=== PATIENT | female | born 1940 | race Caucasian/White ===

== ENCOUNTER 2017-09-18 12:49 | Inpatient (IN) ==
[2017-09-18] MEDS ORDERED: 0.9 % Sodium Chloride 1,000 ML IVC ONE ×3 (13:27→16:16)
[2017-09-18 13:44] LABS: Hematocrit 29.3 % (35.3-44.9); Hemoglobin 9.6 g/dL (11.5-15.4); Mean Corpuscular HGB Conc 32.8 g/dL (31.6-35.5); Mean Corpuscular Hemoglobin 29.8 pg (28.0-33.3); Nucleated Red Blood Cells 0.9 /100 WBC (0); Platelet Count 129 K/mcL (140-400); Red Blood Count 3.22 M/mcL (3.82-4.97)
[2017-09-18 14:06] LABS: Albumin/Globulin Ratio 0.9 (1.1-2.2); Bilirubin,Direct 0.3 mg/dL (0.0-0.2); Bilirubin,Indirect 0.3 mg/dL (0.0-1.2); Bilirubin,Total 0.6 mg/dL (0.3-1.0); Calcium 8.8 mg/dL (8.6-10.3); Globulin 3.5 g/dL (2.4-3.5); Magnesium 1.6 mg/dL (1.6-2.6); Phosphorous 4.6 mg/dL (2.7-4.5); Potassium 4.1 mEq/L (3.5-5.1); Total Protein 6.5 g/dL (6.4-8.9)
[2017-09-18] MEDS ORDERED: Ondansetron 4 MG/2 ML VIAL IVP ONE (14:09)
--- NOTE | 2017-09-18 14:11 | Emergency Department Note ---
Disposition Clinical Impression: Cellulitis Qualifiers: Site of cellulitis: trunk Site of cellulitis of trunk: abdominal wall Qualified Code(s): L03.311 - Cellulitis of abdominal wall Sepsis Qualifiers: Sepsis type: sepsis due to unspecified organism Qualified Code(s): A41.9 - Sepsis, unspecified organism UTI (urinary tract infection) Qualifiers: Urinary tract infection type: site unspecified Hematuria presence: without hematuria Qualified Code(s): N39.0 - Urinary tract infection, site not specified Disposition: Admitted As Inpatient Condition: Fair Referrals: Siri Otto MD [Primary Care Provider] - Forms: ED Satisfaction Letter General Adult HPI - General Chief complaint: ED Weakness Stated complaint: Weak/Dehydrated Time Seen by Provider: 09/18/17 13:15 Source: patient, family Limitations: no limitations Nursing Notes Reviewed: Yes Vital Signs Reviewed: Yes - History of Present Illness HPI Narrative: Patient presents for evaluation of weakness. Patient has endometrial cancer that underwent surgery. She had a complication with delayed wound healing at this area that has undergone wound VAC placement as well as wet-to-dry dressings. She states that she has been having increasing weakness over the last 2 weeks. Her last chemotherapy was on September 08. She has not noticed any specific symptoms as far as cough or urinary problems. She has had some mild right upper quadrant abdominal pain. Subjective fevers with associated nausea. Patient has had 4 episodes of diarrhea since yesterday. Described as watery in nature. Pain Scale: 4 - Related Data Home Medications Medication Instructions Recorded Confirmed Atenolol [Tenormin] 50 mg PO DAILY 09/18/17 09/18/17 Calcium Carbonate/Vitamin D3 1 each PO DAILY 09/18/17 09/18/17 [Calcium 500-Vit D3 200 Tablet] Docusate [Colace] 100 mg PO BID PRN 09/18/17 09/18/17 Magnesium 200 mg PO DAILY 09/18/17 09/18/17 Ondansetron HCl [Zofran] 4 mg PO Q6H PRN 09/18/17 09/18/17 Oxycodone HCl/Acetaminophen 1 - 2 each PO Q6H PRN 09/18/17 09/18/17 [Percocet 5-325 mg Tablet] amLODIPine [Norvasc] 5 mg PO DAILY 09/18/17 09/18/17 Previous Rx's Medication Instructions Recorded hydrOXYzine pamoate [HydrOXYzine 25 mg PO TID PRN #30 capsule 08/12/17 Pamoate] Allergies Allergy/AdvReac Type Severity Reaction Status Date / Time No Known Allergies Allergy Verified 08/12/17 14:19 All systems ED: reviewed and negative except as stated. Constitutional: Reports: fever, chills, weakness Cardiovascular: Denies: chest pain, palpitations Respiratory: Denies: cough, dyspnea, wheezes Gastrointestinal: Reports: abdominal pain, nausea, diarrhea. Denies: vomiting, constipation Genitourinary: Denies: urgency, dysuria, frequency Musculoskeletal: Denies: back pain Integumentary: Denies: rash, abrasion Neurological: Reports: weakness (Generalized) Endocrine: Reports: fatigue Past Medical History - Past Medical History Medical history: Reports: cancer, hypertension Psychiatric history: Reports: no psych history - Social History Smoking Status: Never smoker Smokeless Tobacco Status: No Alcohol use: Reports: none Drug use: Reports: none Physical Exam General: Generalized weakness Head: Normocephalic Atraumatic Eyes: PERRL, EOMI ENT: Airway patent, no stridor Neck: supple, no meningismus Chest: Lungs clear to auscultation bilateral Cardiac: Regular rate and rhythm, no murmurs, rubs or gallops Abdomen: Midline incision with wet-to-dry dressings. No significant cellulitis. No purulent drainage. soft, nontender, nondistended; no guarding, rebound, or tenderness to percussion Musculoskeletal: Calves symmetric, nontender, no palpable cord Skin: No rash, normal skin tone Neuro: Alert and Oriented to person, place, and time; No focal deficit, CN 2-12 symmetric and intact - General Limitations: no limitations General appearance: alert, in no apparent distress Course - Reevaluation(s) Reevaluation #1: Patient with significant decrease in kidney function. Elevated lactate. Concern for infection. Chest x-ray is negative. Urinalysis concerning for mild infection. CT abdomen pelvis also has mild infection. Patient has been placed on antibiotics. More fluids and been ordered. Patient will be admitted for further evaluation. Was discussed with the patient if she would like to be transferred to [facility]. Patient has been adamant about wanting to stay at [facility] for treatment of this. Will be discussed with the hospitalist if she is okay to stay. - Consultations Consultation #1: The hospitalist, , has accepted the patient if the on-call surgeon is willing to take a look at her. Consultation #2: Discussed with Dr. Boateng who agrees to consult on the patient. Vital Signs Temperature 0 F L 09/18/17 13:07 Pulse Rate 78 09/18/17 13:07 Respiratory Rate 20 09/18/17 13:07 Blood Pressure 78/52 09/18/17 13:07 O2 Sat by Pulse Oximetry 100 09/18/17 13:07 Temperature 0 F L 09/18/17 13:07 Pulse Rate 78 09/18/17 16:55 Respiratory Rate 18 09/18/17 16:55 Blood Pressure 96/58 09/18/17 16:55 O2 Sat by Pulse Oximetry 98 09/18/17 16:55 Oxygen Delivery Oxygen Delivery Room Air Medical Decision Making - Lab Data Result diagrams: 09/18/17 13:34 09/18/17 13:34 Lab Results 09/18/17 09/18/17 09/18/17 Range/Units 13:34 13:34 13:34 WBC 3.4 L (4.3-11.1) K/mcL RBC 3.22 L (3.82-4.97) M/mcL Hgb 9.6 L (11.5-15.4) g/dL Hct 29.3 L (35.3-44.9) % MCV 91.0 (83.0-100.0) fL MCH 29.8 (28.0-33.3) pg MCHC 32.8 (31.6-35.5) g/dL RDW 14.0 (11.5-14.5) % Plt Count 129 L (140-400) K/mcL MPV 11.0 (9.4-12.4) fL Seg Neutrophils % 32.0 % Band Neutrophils % 18.0 H (0-4) % Lymphocytes % 15.0 % Monocytes % 34.0 % Myelocytes % 1.0 H (0) % Neutrophils # 1.7 (1.6-8.9) K/mcL Lymphocytes # 0.5 L (0.6-4.6) K/mcL Monocytes # 1.2 (0.0-1.3) K/mcL Nucleated RBCs/100 WBC 0.9 H (0) /100 WBC Reactive Lymphocytes Present A (Not Present) Toxic Vacuolation Present A (Not Present) Platelet Estimate Slight Decrease L (Normal) Large Platelets Present A (Not Present) Sodium 131 L (136-145) mEq/L Potassium 4.1 (3.5-5.1) mEq/L Chloride 96 L (98-107) mEq/L Carbon Dioxide 19 L (23-29) mEq/L BUN 70 H (8-23) mg/dL Creatinine 3.85 H (0.60-1.20) mg/dL Est GFR ( Amer) 14 L (> 60) Est GFR (Non-Af Amer) 11 L (> 60) BUN/Creatinine Ratio 18 (6-26) Glucose 88 (70-105) mg/dL Calculated Osmolality 292 (280-300) Lactic Acid 3.4 H (0.5-2.2) mmol/L Calcium 8.8 (8.6-10.3) mg/dL Venous Ioniz Calcium (1.15-1.35) mmol/L Phosphorus 4.6 H (2.7-4.5) mg/dL Magnesium 1.6 (1.6-2.6) mg/dL Total Bilirubin 0.6 (0.3-1.0) mg/dL Direct Bilirubin 0.3 H (0.0-0.2) mg/dL Indirect Bilirubin 0.3 (0.0-1.2) mg/dL AST 16 (13-39) Units/L ALT 17 (7-52) Units/L Alkaline Phosphatase 67 (34-104) Units/L Troponin I (< 0.04) ng/mL Serum Total Protein 6.5 (6.4-8.9) g/dL Albumin 3.0 L (3.5-5.7) g/dL Globulin 3.5 (2.4-3.5) g/dL Albumin/Globulin Ratio 0.9 L (1.1-2.2) TSH 1.791 (0.340-5.600) mcIU/mL Urine Color (Yellow) Urine Clarity (Clear) Urine pH (5.0-8.0) pH Units Ur Specific [place] (1.010-1.025) Urine Protein (Neg-Trace) mg/dL Urine Glucose (UA) (Normal) mg/dL Urine Ketones (Negative) mg/dL Urine Blood (Negative) Urine Nitrite (Negative) Urine Bilirubin (Negative) Urine Urobilinogen (Normal) mg/dL Ur Leukocyte Esterase (Negative) Urine Microscopic RBC (0-3) per hpf Urine Microscopic WBC (0-3) per hpf Ur Squamous Epith Cells (None-Few) per lpf Urine Bacteria (None-Few) per hpf Hyaline Casts (None-Few) per lpf Granular Casts (None Seen) per lpf Ur Culture Indicated? (NO) 09/18/17 09/18/17 09/18/17 Range/Units 13:34 13:45 15:58 WBC (4.3-11.1) K/mcL RBC (3.82-4.97) M/mcL Hgb (11.5-15.4) g/dL Hct (35.3-44.9) % MCV (83.0-100.0) fL MCH (28.0-33.3) pg MCHC (31.6-35.5) g/dL RDW (11.5-14.5) % Plt Count (140-400) K/mcL MPV (9.4-12.4) fL Seg Neutrophils % % Band Neutrophils % (0-4) % Lymphocytes % % Monocytes % % Myelocytes % (0) % Neutrophils # (1.6-8.9) K/mcL Lymphocytes # (0.6-4.6) K/mcL Monocytes # (0.0-1.3) K/mcL Nucleated RBCs/100 WBC (0) /100 WBC Reactive Lymphocytes (Not Present) Toxic Vacuolation (Not Present) Platelet Estimate (Normal) Large Platelets (Not Present) Sodium (136-145) mEq/L Potassium (3.5-5.1) mEq/L Chloride (98-107) mEq/L Carbon Dioxide (23-29) mEq/L BUN (8-23) mg/dL Creatinine (0.60-1.20) mg/dL Est GFR ( Amer) (> 60) Est GFR (Non-Af Amer) (> 60) BUN/Creatinine Ratio (6-26) Glucose (70-105) mg/dL Calculated Osmolality (280-300) Lactic Acid (0.5-2.2) mmol/L Calcium (8.6-10.3) mg/dL Venous Ioniz Calcium 1.10 L (1.15-1.35) mmol/L Phosphorus (2.7-4.5) mg/dL Magnesium (1.6-2.6) mg/dL Total Bilirubin (0.3-1.0) mg/dL Direct Bilirubin (0.0-0.2) mg/dL Indirect Bilirubin (0.0-1.2) mg/dL AST (13-39) Units/L ALT (7-52) Units/L Alkaline Phosphatase (34-104) Units/L Troponin I < 0.03 (< 0.04) ng/mL Serum Total Protein (6.4-8.9) g/dL Albumin (3.5-5.7) g/dL Globulin (2.4-3.5) g/dL Albumin/Globulin Ratio (1.1-2.2) TSH (0.340-5.600) mcIU/mL Urine Color Dark Yellow (Yellow) Urine Clarity Turbid A (Clear) Urine pH 5.0 (5.0-8.0) pH Units Ur Specific [place] 1.026 H (1.010-1.025) Urine Protein 100 H (Neg-Trace) mg/dL Urine Glucose (UA) Normal (Normal) mg/dL Urine Ketones Trace H (Negative) mg/dL Urine Blood Moderate H (Negative) Urine Nitrite Negative (Negative) Urine Bilirubin Small H (Negative) Urine Urobilinogen Normal (Normal) mg/dL Ur Leukocyte Esterase Trace H (Negative) Urine Microscopic RBC 15-30 H (0-3) per hpf Urine Microscopic WBC 50-100 H (0-3) per hpf Ur Squamous Epith Cells Many H (None-Few) per lpf Urine Bacteria Moderate H (None-Few) per hpf Hyaline Casts None Seen (None-Few) per lpf Granular Casts Few H (None Seen) per lpf Ur Culture Indicated? NO (NO)
[2017-09-18 14:22] LABS: Lymphocytes # 0.5 K/mcL (0.6-4.6); Monocytes # 1.2 K/mcL (0.0-1.3); Neutrophils # 1.7 K/mcL (1.6-8.9)
[2017-09-18 14:23] LABS: Toxic Vacuolation Present (Not Present)
[2017-09-18 14:24] LABS: Large Platelets Present (Not Present); Platelet Estimate Slight Decrease (Normal); Reactive Lymphocytes Present (Not Present)
[2017-09-18 14:38] LABS: Thyroid Stimulating Hormone 1.791 mcIU/mL (0.340-5.600)
--- NOTE | 2017-09-18 14:57 | Emergency Department Note ---
START Narrative - START START: I examined this patient and my medical decision-making was reviewed with the Resident Physician. I agree with the documented findings, disposition and treatment plan as described except to the extent set forth below. 77 year old female presents to the ED with complaints of hypotension and geenrelized weakness and fatigue and increased pain inot her lower abdomen where she has a chronic abdminla wund that has required wound vac and mutliple changes in dressing. PAtinet and family state that they have not noticed increased drainge fromt he area although she has had increased redness to the to the incisional sites. Patinet states that she has had increased nausea and diffuciity with urination. We will do sepsis workup and she is hypoteinsive and we have placed IVx2 in her and will do aggressive fluid resusitation. lactic acid 3.4 and worsening renal function. we likely admit unless this is a surgical componenet to the abdomen that will need to be drained. Her oginial surgery was preformed at [facility]
[2017-09-18] MEDS ORDERED: Piperacillin/Tazobactam 3.375 GM in D5% in Water (Mini-Bag+) 100 ML IVPB ONE (16:02)
[2017-09-18] MEDS ORDERED: Vancomycin 1,000 MG in D5% in Water 250 ML IVPB ONE (16:03)
[2017-09-18 16:09] LABS: Bilirubin,Urine Small (Negative); Blood,Urine Moderate (Negative); Clarity,Urine Turbid (Clear); Color,Urine Dark Yellow (Yellow); Glucose,Urine (UA) Normal (Normal); Ketones,Urine Trace mg/dL (Negative); Leukocyte Esterase,Urine Trace (Negative); Nitrite,Urine Negative (Negative); Protein,Urine 100 mg/dL (Neg-Trace); Specific Gravity,Urine 1.026 (1.010-1.025); Urobilinogen,Urine Normal (Normal)
[2017-09-18 16:11] LABS: Squamous Epithelial Cell,Urine Many per lpf (None-Few); WBC,Urine 50-100 per hpf (0-3)
[2017-09-18] MEDS ORDERED: Piperacillin/Tazobactam 3.375 GM in Water for inj. (sterile) 20 ML 20 ML IVPB ONE (16:45)
[2017-09-18] MEDS ORDERED: Piperacillin/Tazobactam 3.375 GM in Water for inj. (sterile) 20 ML 20 ML IVP ONE (16:45)
[2017-09-18 16:59] LABS: Bacteria,Urine Moderate per hpf (None-Few); Granular Casts,Urine Few per lpf (None Seen); Hyaline Casts,Urine None Seen per lpf (None-Few); RBC,Urine 15-30 per hpf (0-3)
--- NOTE | 2017-09-18 20:23 | Internal Med History&Physical ---
Date of Encounter: 09/18/17 Time of Encounter: 20:22 Assessment and Plan (1) Dehydration Current visit: Yes Status: Acute Secondary to decreased oral intake and sever diarrhea, continue IV fluid (2) Gastroenteritis Current visit: Yes Status: Acute Check stool study, add lactobacillus, fluid resuscitation (3) Acute renal failure Current visit: Yes Status: Acute Continue IV fluid, check bladder scan, check basic metabolic profile next a.m., check urine electrolytes , if renal function is not better by tomorrow we will consider renal ultrasound and nephrology consult Qualifiers: Acute renal failure type: unspecified Qualified Code(s): N17.9 - Acute kidney failure, unspecified (4) UTI (urinary tract infection) Current visit: Yes Status: Acute Add ciprofloxacin Qualifiers: Urinary tract infection type: site unspecified Hematuria presence: without hematuria Qualified Code(s): N39.0 - Urinary tract infection, site not specified Internal Medicine - H&P: HPI Chief complaint: Diarrhea, confusion, decreased oral intake Admitted From: Emergency Dept Plans for Post Hospital Care: Home History of present illness: Ms. Paul is a 77 year old female with past medical history of endometrial cancer status post total hysterectomy and chemotherapy. Patient stated she had three sessions of chemotherapy. Last chemotherapy session was last week. Patient stated that over last week her cognition has been getting worse. Marked diminished oral intake of fluid and food. Patient denies any nausea or vomiting. Patient denies any abdominal pain. She stated she had watery diarrhea for last 3 days more than 5 bowel movement daily. No blood in her stool. Patient is feeling chilly and cold all the time since starting chemotherapy. Patient denies any dysuria or hematuria. Patient denies any chest pain or shortness of breath, patient and family is stated over last 24 hour patient had confusion she is not herself, now back to her normal after fluid resuscitation Past Med Surg Social Fam HX - Past Medical History Medical history: cancer (Endometrial), hypertension Psychiatric history: no psych history - Past Surgical History Surgical History: hysterectomy - Social History Smoking Status: Never smoker Smokeless Tobacco Status: No Alcohol use: none Drug use: none - Additional Family History Additional family history: Sister has a history of systemic lupus erythematosus andhistory of kidney cancer. Sister has history of lung cancer Internal Medicine - H&P: Meds hydrOXYzine pamoate [HydrOXYzine Pamoate] 25 mg PO TID PRN #30 capsule 08/12/17 [Rx] Atenolol [Tenormin] 50 mg PO DAILY 09/18/17 [History] Calcium Carbonate/Vitamin D3 [Calcium 500-Vit D3 200 Tablet] 1 each PO DAILY [History] Docusate [Colace] 100 mg PO BID PRN 09/18/17 [History] Magnesium 200 mg PO DAILY 09/18/17 [History] Ondansetron HCl [Zofran] 4 mg PO Q6H PRN 09/18/17 [History] Oxycodone HCl/Acetaminophen [Percocet 5-325 mg Tablet] 1 - 2 each PO Q6H PRN [History] amLODIPine [Norvasc] 5 mg PO DAILY 09/18/17 [History] 3 Allergy/AdvReac Type Severity Reaction Status Date / Time No Known Allergies Allergy Verified 08/12/17 14:19 All Systems PM: A 10-system review of systems was performed and is negative for pertinent findings except as documented above in the HPI. - Constitutional Vitals: Temp Pulse Resp BP Pulse Ox 97.9 F 70 16 102/57 98 09/18/17 19:32 09/18/17 18:23 09/18/17 19:32 09/18/17 19:32 09/18/17 18:23 General appearance: Present: A&O X 3 - Head Head exam: Present: atraumatic, normocephalic - Neck Neck exam general surgery: Present: supple, trachea midline. Absent: lymphadenopathy - Respiratory Respiratory exam: Present: decreased breath sounds. Absent: accessory muscle use, rales, rhonchi, wheezes - Cardiovascular Cardiovascular exam: Present: RRR, +S1, +S2. Absent: diastolic murmur, gallop, rubs, systolic murmur - GI/Abdominal GI/Abdominal exam: Present: normal bowel sounds, soft, no peritoneal signs. Absent: distended, tenderness - Extremities Exam Extremities exam: Present: warm, radial pulses palpable and symmetrical. Absent : calf tenderness, cyanotic, pedal edema - Neurological Exam Neurological exam: Present: CN II-XII intact, oriented X3, no focal deficits. Absent: pronater drift, facial droop, speech deficit - Skin Skin exam: Present: dry Additional comments: Erythema around abdominal wound area Internal Med - H&P Results - Labs CBC & Chem 7: 09/18/17 13:34 09/18/17 13:34
[2017-09-18] MEDS ORDERED: Naloxone 0.4 MG/ML INJ IVP PRN (21:34)
[2017-09-18] MEDS ORDERED: Acetaminophen 325 MG TABLET PO PRN (21:34)
[2017-09-18] MEDS ORDERED: Calcium Gluconate 1,000 MG in D5% in Water 100 ML IVPB ONE (22:18)
[2017-09-18] MEDS ORDERED: Magnesium Sulfate 1 GM in D5% in Water 100 ML IVPB ONE (22:19)
[2017-09-18 22:23] LABS: Uric Acid 7.5 mg/dL (2.3-7.6)
[2017-09-18] MEDS: Lactobacillus 1 EACH CAP.SPRINK PO SCH (23:37)
[2017-09-18] MEDS: 0.9 % Sodium Chloride 1,000 ML IVC SCH (23:37)
[2017-09-19 00:39] LABS: Basophils % 0.3 %; Hematocrit 24.2 % (35.3-44.9); Lymphocytes # 0.4 K/mcL (0.6-4.6); Lymphocytes % 11.8 %; Mean Corpuscular HGB Conc 32.2 g/dL (31.6-35.5); Mean Corpuscular Hemoglobin 29.7 pg (28.0-33.3); Mean Platelet Volume 11.5 fL (9.4-12.4); Monocytes # 0.6 K/mcL (0.0-1.3); Monocytes % 16.7 %; Neutrophils # 2.5 K/mcL (1.6-8.9); Nucleated Red Blood Cells 0.5 /100 WBC (0); Platelet Count 127 K/mcL (140-400); Red Blood Count 2.63 M/mcL (3.82-4.97); Red Cell Distribution Width 14.1 % (11.5-14.5); Segmented Neutrophils % 68.2 %
[2017-09-19 00:41] LABS: Hemoglobin 7.8 g/dL (11.5-15.4)
[2017-09-19 00:50] LABS: Calcium 7.6 mg/dL (8.6-10.3); Magnesium 1.7 mg/dL (1.6-2.6); Potassium 3.6 mEq/L (3.5-5.1)
[2017-09-19 04:13] LABS: Platelet Estimate Normal (Normal)
[2017-09-19 04:15] LABS: Anisocytosis 1+ (Not Present)
--- NOTE | 2017-09-19 08:04 | Electrocardiograph Report ---
[place] [id number] Test Date: 2017-09-18 Pat Name: Celina Paul Department: 104 Room: [id number] Gender: F [employer]: : 1940 Requested By: Azeem Hsieh Order Number: [id number] Reading MD: Greg Anna DO Measurements Intervals [place] Rate: 70 P: 68 IL: 214 QRS: -49 QRSD: 112 T: 42 QT: 390 QTc: 410 Interpretive Statements SINUS RHYTHM WITH FIRST DEGREE AV BLOCK LEFT ANTERIOR FASCICULAR BLOCK Electronically Signed On 09-19-2017 8:03:23 EST by Greg Anna DO
--- NOTE | 2017-09-19 09:11 | Nephrology Consult Note ---
Date of Encounter: 09/19/17 Time of Encounter: 09:06 Assessment and Plan (1) AKHIL (acute kidney injury) Current Visit: Yes Status: Acute AKHIL appears to be prerenal, already improving with IV fluids Agree with IV fluids for hydration Strict I/Os Will proceed with the AKHIL workup to include: Urine culture, urine sodium, urine creatinine, urine eosinophils, CPK, renal ultrasound, uric acid, and protein/creatinine ratio (2) Dehydration Current Visit: Yes Status: Acute Continue IV fluids per primary team (3) UTI (urinary tract infection) Current Visit: Yes Status: Acute per primary team Qualifiers: Urinary tract infection type: site unspecified Hematuria presence: with hematuria Qualified Code(s): N39.0 - Urinary tract infection, site not specified; R31.9 - Hematuria, unspecified; R31.9 - Hematuria, unspecified History of Present Illness - Reason for Consult Consult date: 09/19/17 - Chief Complaint AKHIL, dehydration - History of Present Illness Ms. Paul is a 77 year old female with past medical history of endometrial cancer status post total hysterectomy and chemotherapy, and HTN. Patient has had three sessions of chemotherapy with last session was last week. She has had diminished oral intake and watery diarrhea for last 3 days. Kidney function was normal earlier this month but on admission Scr was 3.85 and GFR 11 ; Scr has improved today to 2.71 and GFR 17. Nephrology has been consulted for acute kidney injury. Past Med Surg Social Fam HX - Past Medical History Medical history: cancer (Endometrial), hypertension Psychiatric history: no psych history - Past Surgical History Surgical History: hysterectomy - Social History Smoking Status: Never smoker Smokeless Tobacco Status: No Alcohol use: none Drug use: none Medications and Allergies hydrOXYzine pamoate [HydrOXYzine Pamoate] 25 mg PO TID PRN #30 capsule 08/12/17 [Rx] Atenolol [Tenormin] 50 mg PO DAILY 09/18/17 [History] Calcium Carbonate/Vitamin D3 [Calcium 500-Vit D3 200 Tablet] 1 each PO DAILY [History] Docusate [Colace] 100 mg PO BID PRN 09/18/17 [History] Magnesium 200 mg PO DAILY 09/18/17 [History] Ondansetron HCl [Zofran] 4 mg PO Q6H PRN 09/18/17 [History] Oxycodone HCl/Acetaminophen [Percocet 5-325 mg Tablet] 1 - 2 each PO Q6H PRN [History] amLODIPine [Norvasc] 5 mg PO DAILY 09/18/17 [History] 3 Allergy/AdvReac Type Severity Reaction Status Date / Time No Known Allergies Allergy Verified 08/12/17 14:19 Review of Systems All Systems: reviewed and no additional remarkable complaints except as stated Constitutional: malaise, weakness, no chills, no fever(s), no increased appetite Cardiovascular: no chest pain, no dyspnea, no edema Respiratory: no cough, no dyspnea Gastrointestinal: diarrhea, no nausea, no vomiting Neurological: behavioral changes, confusion, weakness Exam - Vital Signs Vital signs: Initial Vital Signs Temp Pulse Resp BP Pulse Ox 0 F L 78 20 78/52 100 09/18/17 13:07 09/18/17 13:07 09/18/17 13:07 09/18/17 13:07 09/18/17 13:07 Vital Signs - Last 8 Hours Pulse Resp BP Pulse Ox 09/19/17 08:36 97 09/19/17 06:43 72 17 101/56 97 09/19/17 05:42 69 17 101/59 96 Intake and Output 09/18/17 09/19/17 09/19/17 23:59 07:59 15:59 Intake Total 200 / 200 Output Total 1000 / 1000 Balance -800 / -800 Intake: IV Fluids 200 / 200 Cipro Premix 400 MG/200 ML 400 200 / 200 mg In 200 ml @ 200 mls/hr IVPB Q12HR [facility] Rx#:[id number] Oral 0 / 0 Output: Catheter 1000 / 1000 Other: Stool Size Moderate Stool Consistency liquid Stool Color Brown - General Appearance General appearance: well-developed, well-nourished EENT: ATNC, mucous membranes moist, hearing intact, vision intact Neck: supple Respiratory: clear Cardiology: no edema, normal S1, normal S2 Gastrointestinal: no tenderness, no guarding Integumentary: warm and dry Neurologic: alert and oriented x3 Psychiatric: mood/affect appropriate, cooperative Results - Lab Results 09/19/17 00:13 09/19/17 00:13 Most recent lab results Calcium 7.6 mg/dL (8.6-10.3) L 09/19/17 00:13 Phosphorus 4.0 mg/dL (2.7-4.5) 09/19/17 00:13 Magnesium 1.7 mg/dL (1.6-2.6) 09/19/17 00:13 Consult Discharge Plan - Plan Referrals: Siri Otto MD [Primary Care Provider] - 09/25/17 11:15 am
[2017-09-19] MEDS: 0.9 % Sodium Chloride 1,000 ML IVC SCH ×2 (09:45→20:49)
[2017-09-19] MEDS: Lactobacillus 1 EACH CAP.SPRINK PO SCH (09:46)
[2017-09-19 12:16] LABS: Protein/Creatinine Ratio,Urine 1.43 mg/mg (0.00-0.20); Sodium, Urine 16.4 mEq/L
--- NOTE | 2017-09-19 18:32 | Internal Med Progress Note ---
Date of Encounter: 09/19/17 Time of Encounter: 11:00 - Assessment and plan (1) AKHIL (acute kidney injury) Current Visit: Yes Status: Acute Assessment and plan: -Patient's creatinine has improved from 3.85 to 2.71 this morning with IV fluids -Nephrology consulted and appreciate recommendations (2) UTI (urinary tract infection) Current Visit: Yes Status: Acute Assessment and plan: -Continue IV Cipro; cultures ordered Qualifiers: Urinary tract infection type: site unspecified Hematuria presence: with hematuria Qualified Code(s): N39.0 - Urinary tract infection, site not specified; R31.9 - Hematuria, unspecified; R31.9 - Hematuria, unspecified (3) Dehydration Current Visit: Yes Status: Acute Assessment and plan: -Continue IV fluids. (4) Gastroenteritis Current Visit: Yes Status: Acute Assessment and plan: -Stool culture sent; continue IV fluids - Subjective Interval history: Patient with improving AKHIL this morning with IV fluids - Constitutional Vitals: Temp Pulse Resp BP Pulse Ox 97.1 F L 67 19 116/75 97 09/19/17 11:00 09/19/17 15:00 09/19/17 15:00 09/19/17 15:00 09/19/17 15:00 General appearance: Present: A&O X 3 - Respiratory Respiratory exam: Present: CTAB. Absent: accessory muscle use, rales, rhonchi, wheezes - Cardiovascular Cardiovascular exam: Present: RRR, +S1, +S2. Absent: diastolic murmur, gallop, rubs, systolic murmur Internal Medicine: Result - Labs CBC & Chem 7: 09/19/17 00:13 09/19/17 00:13 Labs: Short CBC 09/19/17 Range/Units 00:13 WBC 3.7 L (4.3-11.1) K/mcL Hgb 7.8 L D (11.5-15.4) g/dL Hct 24.2 L (35.3-44.9) % Plt Count 127 L (140-400) K/mcL Neutrophils # 2.5 (1.6-8.9) K/mcL BMP 09/19/17 00:13 Sodium 137 Potassium 3.6 Chloride 105 Carbon Dioxide 18 L BUN 63 H Creatinine 2.71 H Glucose 76 Calcium 7.6 L - Impressions Impressions Retroperitoneum Ultrasound 09/19/17 16:00 IMPRESSION: Normal renal ultrasound. D/ / Liang Mcdonough MD / Liang Mcdonough MD Interpreting Provider: Liang Mcdonough MD Consult Discharge Plan - Plan Referrals: Siri Otto MD [Primary Care Provider] - 09/25/17 11:15 am
[2017-09-20] MEDS: 0.9 % Sodium Chloride 1,000 ML IVC SCH (06:01)
[2017-09-20 07:55] LABS: Hematocrit 27.4 % (35.3-44.9); Mean Corpuscular HGB Conc 32.8 g/dL (31.6-35.5); Mean Corpuscular Hemoglobin 30.5 pg (28.0-33.3); Mean Corpuscular Volume 92.9 fL (83.0-100.0); Monocytes # 0.8 K/mcL (0.0-1.3); Nucleated Red Blood Cells 0.4 /100 WBC (0); Platelet Count 153 K/mcL (140-400); Red Blood Count 2.95 M/mcL (3.82-4.97); Red Cell Distribution Width 14.5 % (11.5-14.5)
[2017-09-20 08:28] LABS: Lymphocytes # 1.3 K/mcL (0.6-4.6); Neutrophils # 10.6 K/mcL (1.6-8.9); Platelet Estimate Normal (Normal)
[2017-09-20] MEDS: Lactobacillus 1 EACH CAP.SPRINK PO SCH (09:28)
[2017-09-20 09:42] LABS: Calcium 8.1 mg/dL (8.6-10.3)
[2017-09-20 10:06] LABS: Basophils # 0.1 K/mcL (0.0-0.2); Basophils % 0.5 %; Eosinophils % 0.2 %; Hemoglobin 8.2 g/dL (11.5-15.4); Immature Granulocytes % 10.6 % (0-4); Lymphocytes # 0.8 K/mcL (0.6-4.6); Lymphocytes % 7.3 %; Mean Corpuscular HGB Conc 31.5 g/dL (31.6-35.5); Mean Corpuscular Hemoglobin 29.6 pg (28.0-33.3); Mean Corpuscular Volume 93.9 fL (83.0-100.0); Monocytes # 0.7 K/mcL (0.0-1.3); Monocytes % 6.6 %; Neutrophils # 8.3 K/mcL (1.6-8.9); Nucleated Red Blood Cells 0.4 /100 WBC (0); Platelet Count 139 K/mcL (140-400); Red Blood Count 2.77 M/mcL (3.82-4.97); Red Cell Distribution Width 14.3 % (11.5-14.5); Segmented Neutrophils % 74.8 %
[2017-09-20 10:19] LABS: Adenovirus F 40/41 PCR Not detected (Not detect); Astrovirus PCR Not detected (Not detect); C.difficile Toxin A/B by PCR Not detected (Not detect); Campylobacter by PCR Not detected (Not detect); Cryptosporidium by PCR Not detected (Not detect); Cyclospora cayetanensis PCR Not detected (Not detect); E. coli O157 by PCR Not detected (Not detect); Entamoeba histolytica PCR Not detected (Not detect); Enteroaggregative E.coli(EAEC) Not detected (Not detect); Enteropathogenic E.coli(EPEC) Not detected (Not detect); Enterotoxigenic E.coli (ETEC) Not detected (Not detect); Giardia lamblia PCR Not detected (Not detect); Norovirus GI/GII PCR Not detected (Not detect); Plesiomonas shigelloides PCR Not detected (Not detect); Rotavirus A PCR Not detected (Not detect); Salmonella PCR Not detected (Not detect); Sapovirus PCR Not detected (Not detect); Shig/EnteroinvasiveE coli EIEC Not detected (Not detect); Shigalike tox-prod E coli STEC Not detected (Not detect); Vibrio PCR Not detected (Not detect); Vibrio cholerae PCR Not detected (Not detect); Yersinia enterocolitica PCR Not detected (Not detect)
[2017-09-20 10:40] LABS: Platelet Estimate Normal (Normal)
--- NOTE | 2017-09-20 14:29 | Nephrology Progress Note ---
Date of Encounter: 09/20/17 Time of Encounter: 14:27 - Assessment and Plan (1) AKHIL (acute kidney injury) Current Visit: Yes Status: Acute Appears prerenal, nonoliguric. Creatinine continues to improve, down to 1.18 today. Retroperitoneal ultrasound unremarkable. Agree with continuing hydration. Recommend potassium replacement as her potassium is 3.0. Encourage oral intake. Of note the patient does have some microalbuminuria. May be transient given that her renal function continues to improve. Okay to remove Hong from a nephrology standpoint. Recommend repeating as an outpatient once the patient fully recovers and if remains persistently the patient can follow- up as an outpatient with Dr. Cooper with [facility]. Given the patient's renal function continues to improve will follow from a distance, please call with any questions. (2) UTI (urinary tract infection) Current Visit: Yes Status: Acute Qualifiers: Urinary tract infection type: site unspecified Hematuria presence: with hematuria Qualified Code(s): N39.0 - Urinary tract infection, site not specified; R31.9 - Hematuria, unspecified; R31.9 - Hematuria, unspecified (3) Dehydration Current Visit: Yes Status: Acute Subjective Principal diagnosis: Dehydration Interval history: Patient seen and examined at bedside. Patient states that she feels pretty good today. She feels like her strength is getting back to normal. She denies nausea, vomiting, diarrhea, decreased appetite. Objective - Vital Signs Vital signs: Vital Signs Temp Pulse Resp BP Pulse Ox 09/20/17 09:54 96 09/20/17 07:00 97.1 F L 67 17 125/72 96 09/20/17 05:35 86 18 138/78 96 09/19/17 21:20 97 09/19/17 20:44 98.1 F 80 16 103/64 92 09/19/17 15:00 67 19 116/75 97 Intake and Output 09/19/17 09/20/17 09/20/17 23:59 07:59 15:59 Intake Total 1740 / 1740 1000 / 1000 120 / 120 Output Total 900 / 900 1000 / 1000 350 / 350 Balance 840 / 840 0 / 0 -230 / -230 Intake: IV Fluids 1000 / 1000 1000 / 1000 0.9 % Sodium Chloride 1,000 ML 1000 / 1000 @ 100 mls/hr IVC .Q10H [facility] Rx#: [id number] Oral 740 / 740 120 / 120 Output: Catheter 900 / 900 1000 / 1000 350 / 350 Other: Meal Dinner Breakfast Percent of Meal Consumed 50% 35% Stool Size Moderate Stool Consistency liquid Stool Color Brown # Voids 1 # Bowel Movements 1 - General Appearance General appearance: Present: well-developed, well-nourished, appears started age EENT: Present: ATNC, PERRL, mucous membranes moist Neck: Present: supple Respiratory: Present: clear Cardiology: Present: no murmurs, no edema, regular rate, regular rhythm Gastrointestinal: Present: normoactive bowel sounds, no tenderness Integumentary: Present: no rash, warm and dry Neurologic: Present: no focal deficit, alert and oriented x3 Musculoskeletal: Present: no deformities, no erythema, no cyanosis Psychiatric: Present: mood/affect appropriate - Lab 09/20/17 09:52 09/20/17 07:00 Most recent lab results Calcium 8.1 mg/dL (8.6-10.3) L 09/20/17 07:00 Phosphorus 4.0 mg/dL (2.7-4.5) 09/19/17 00:13 Magnesium 1.7 mg/dL (1.6-2.6) 09/19/17 00:13 Urine Creatinine 138 mg/dL 09/19/17 10:51 Urine Sodium 16.4 mEq/L 09/19/17 10:51 Urine Total Protein 197 mg/dL 09/19/17 10:51 - VTE Documentation of Mechanical Device: Graduated compression elastic hosiery Consult Discharge Plan - Plan Referrals: Siri Otto MD [Primary Care Provider] - 09/25/17 11:15 am
--- NOTE | 2017-09-20 18:14 | Internal Med Progress Note ---
Date of Encounter: 09/20/17 Time of Encounter: 11:00 - Assessment and plan (1) AKHIL (acute kidney injury) Current Visit: Yes Status: Acute Assessment and plan: -Patient's creatinine has improved from 3.85 to 2.71 to 1.18 this morning with IV fluids -Nephrology consulted and appreciate recommendations (2) UTI (urinary tract infection) Current Visit: Yes Status: Ruled-out Assessment and plan: -Cultures negative for UTI Qualifiers: Urinary tract infection type: site unspecified Hematuria presence: with hematuria Qualified Code(s): N39.0 - Urinary tract infection, site not specified; R31.9 - Hematuria, unspecified; R31.9 - Hematuria, unspecified (3) Dehydration Current Visit: Yes Status: Acute Assessment and plan: -Continue IV fluids. (4) Gastroenteritis Current Visit: Yes Status: Acute Assessment and plan: -Stool culture sent; continue IV fluids - Subjective Interval history: Patient with improving AKHIL this morning with IV fluids Patient growing gram-negative rods on culture - Constitutional Vitals: Temp Pulse Resp BP Pulse Ox 97.9 F 70 18 135/72 97 09/20/17 15:00 09/20/17 15:00 09/20/17 15:00 09/20/17 15:00 09/20/17 15:00 General appearance: Present: A&O X 3 - Respiratory Respiratory exam: Present: CTAB. Absent: accessory muscle use, rales, rhonchi, wheezes - Cardiovascular Cardiovascular exam: Present: RRR, +S1, +S2. Absent: diastolic murmur, gallop, rubs, systolic murmur Internal Medicine: Result - Labs CBC & Chem 7: 09/20/17 09:52 09/20/17 07:00 Labs: Short CBC 09/20/17 09/20/17 Range/Units 07:00 09:52 WBC 12.6 H D 11.1 (4.3-11.1) K/mcL Hgb 9.0 L 8.2 L (11.5-15.4) g/dL Hct 27.4 L 26.0 L (35.3-44.9) % Plt Count 153 139 L (140-400) K/mcL Neutrophils # 10.6 H 8.3 (1.6-8.9) K/mcL BMP 09/20/17 07:00 Sodium 135 L Potassium 3.0 L Chloride 108 H Carbon Dioxide 18 L BUN 39 H Creatinine 1.18 Glucose 120 H Calcium 8.1 L - VTE Documentation of Mechanical Device: Graduated compression elastic hosiery Consult Discharge Plan - Plan Referrals: Siri Otto MD [Primary Care Provider] - 09/25/17 11:15 am
[2017-09-21 05:13] LABS: Hematocrit 25.3 % (35.3-44.9); Hemoglobin 8.3 g/dL (11.5-15.4); Mean Corpuscular HGB Conc 32.8 g/dL (31.6-35.5); Mean Corpuscular Hemoglobin 30.2 pg (28.0-33.3); Mean Platelet Volume 10.7 fL (9.4-12.4); Nucleated Red Blood Cells 0.5 /100 WBC (0); Platelet Count 139 K/mcL (140-400); Red Blood Count 2.75 M/mcL (3.82-4.97); Red Cell Distribution Width 14.6 % (11.5-14.5)
[2017-09-21 05:28] LABS: BUN/Creatinine Ratio 25 (6-26); Blood Urea Nitrogen 21 mg/dL (8-23); Carbon Dioxide 23 mEq/L (23-29); Chloride 110 mEq/L (98-107); Glucose 95 mg/dL (70-105); Osmolality,Calculated 289 (280-300); Potassium 3.2 mEq/L (3.5-5.1); Sodium 138 mEq/L (136-145); eGFR For African Americans > 60 (> 60); eGFR For Non-African Americans > 60 (> 60)
[2017-09-21 05:53] LABS: Lymphocytes # 1.1 K/mcL (0.6-4.6); Monocytes # 1.1 K/mcL (0.0-1.3); Neutrophils # 6.2 K/mcL (1.6-8.9); Platelet Estimate Slight Decrease (Normal)
[2017-09-21 07:06] VITALS: BP 135/73
[2017-09-21] MEDS: Lactobacillus 1 EACH CAP.SPRINK PO SCH (08:57)
--- NOTE | 2017-09-21 15:28 | Discharge Summary ---
Date of Encounter: 09/21/17 Time of Encounter: 11:00 - Discharge Diagnosis (1) AKHIL (acute kidney injury) Priority: Secondary Status: Acute (2) Dehydration Priority: Primary Status: Acute (3) Gastroenteritis Priority: Primary Status: Acute - Discharge Medications Prescriptions: Levofloxacin [Levaquin] 750 mg PO DAILY #30 tablet Home Medications: hydrOXYzine pamoate [HydrOXYzine Pamoate] 25 mg PO TID PRN #30 capsule 08/12/17 [Rx] Atenolol [Tenormin] 50 mg PO DAILY 09/18/17 [History] Calcium Carbonate/Vitamin D3 [Calcium 500-Vit D3 200 Tablet] 1 each PO DAILY [History] Docusate [Colace] 100 mg PO BID PRN 09/18/17 [History] Magnesium 200 mg PO DAILY 09/18/17 [History] Ondansetron HCl [Zofran] 4 mg PO Q6H PRN 09/18/17 [History] Oxycodone HCl/Acetaminophen [Percocet 5-325 mg Tablet] 1 - 2 each PO Q6H PRN [History] amLODIPine [Norvasc] 5 mg PO DAILY 09/18/17 [History] Levofloxacin [Levaquin] 750 mg PO DAILY #30 tablet 09/21/17 [Rx] Allergies/Adverse Reactions: 3 Allergy/AdvReac Type Severity Reaction Status Date / Time No Known Allergies Allergy Verified 08/12/17 14:19 Procedures/tests Complete & Pending: Procedures Performed prior 72 hours Category Date Time Status Retroperitoneal Ultrasound - Complete [US Exams 09/19/17 16:00 Completed retroperitoneal comp] [US] Stat Date of admission: 09/18/17 21:34 Primary care physician: Siri Otto Consults: 09/19/17 03:38 Consult to Wound Care [CONS] Routine Reason for Consult: Non-healing surgical wound S/P hysterectomy Call Completed: No - Patient Status Disposition: Home Health Service Condition: Fair - Discharge Instructions Follow Up With: Siri Otto MD [Primary Care Provider] - 09/25/17 11:15 am Hospital course: Patient is a 77-year-old female with past medical history significant for endometrial cancer status post total hysterectomy and chemotherapy who presented to the ER on 09/18/17 secondary to weakness and diarrhea. Patient reported that after each chemotherapy therapy session, she usually becomes weak and fatigued but this time her symptoms were worse. In addition patient reported of decreased by mouth intake. Furthermore, patient also reported of diarrhea. Patient decided to come to the ER for evaluation where she was admitted to the medical surgical floor for further evaluation and management. Patients hospital stay, supportive care was given for gastroenteritis which resolved and acute kidney injury also resolved with IV fluid. Patient was also found to be hypokalemic which was corrected with potassium replacements. Patient was found to have Pseudomonas growing from abdominal wound and was treated with IV Cipro. She will complete a 7 day course of Levaquin as an outpatient and follow-up with primary care provider. - Time Spent with Patient Total time spent providing and/or coordinating discharge services: Less than 30 minutes - Constitutional Vitals: Temp Pulse Resp BP Pulse Ox 98.4 F 78 15 135/73 93 09/21/17 07:03 09/21/17 07:03 09/21/17 07:03 09/21/17 07:03 09/21/17 09:00 General appearance: Present: A&O X 3 - Respiratory Respiratory exam: Present: CTAB. Absent: accessory muscle use, rales, rhonchi, wheezes - Cardiovascular Cardiovascular exam: Present: RRR, +S1, +S2. Absent: diastolic murmur, gallop, rubs, systolic murmur - VTE Documentation of Mechanical Device: Graduated compression elastic hosiery
--- NOTE | 2017-09-21 15:29 | Physician Discharge Referral ---
Home Health/Hosp Referral Info Transfer to: Home Health - Diagnosis (1) AKHIL (acute kidney injury) Priority: Primary Status: Acute (2) Dehydration Priority: Primary Status: Acute (3) Gastroenteritis Priority: Primary Status: Acute - Respiratory Orders Smoking Cessation: Smoking cessation has been advised. For more information, call the [place] Tobacco Quit Line at 4-856-FHAD-NOW. - Services Needed Following services are medically necessary services: Nursing (Repeat BMP on ; results to be sent to primary care provider) - Transfer Medications Prescriptions: Levofloxacin [Levaquin] 750 mg PO DAILY #30 tablet Home Medications: hydrOXYzine pamoate [HydrOXYzine Pamoate] 25 mg PO TID PRN #30 capsule 08/12/17 [Rx] Atenolol [Tenormin] 50 mg PO DAILY 09/18/17 [History] Calcium Carbonate/Vitamin D3 [Calcium 500-Vit D3 200 Tablet] 1 each PO DAILY [History] Docusate [Colace] 100 mg PO BID PRN 09/18/17 [History] Magnesium 200 mg PO DAILY 09/18/17 [History] Ondansetron HCl [Zofran] 4 mg PO Q6H PRN 09/18/17 [History] Oxycodone HCl/Acetaminophen [Percocet 5-325 mg Tablet] 1 - 2 each PO Q6H PRN [History] amLODIPine [Norvasc] 5 mg PO DAILY 09/18/17 [History] Levofloxacin [Levaquin] 750 mg PO DAILY #30 tablet 09/21/17 [Rx] Allergies/Adverse Reactions: 3 Allergy/AdvReac Type Severity Reaction Status Date / Time No Known Allergies Allergy Verified 08/12/17 14:19 Certification: Further, I certify that my clinical findings support that this patient is homebound (i.e. absences from home require considerable and taxing effort and are for medical reasons or protestant services or infrequently or short duration when for other reasons) because: Homebound Reason: Leaving home requires considerable and taxing effort due to condition Attestation: My signature below is to certify that this patient is under my care and that I, or nurse practitioner, or a physician's medical office assistant instructor working with me, has a face-to -face encounter with this patient.
== END 2017-09-21 17:18 | disposition home health service (06) | DRG 392 ==
LOC: EMEROO 12:49 → 2NENU 12:49 → SUATTDRO 21:34
PROVIDERS: ADMIT Internal Medicine; ATTEND Hospitalist